=== PATIENT | female | born 1950 | race Caucasian/White ===

== ENCOUNTER 2019-01-04 13:47 | Inpatient (IN) | payer MEDICARE ==
[2019-01-04] MEDS ORDERED: Morphine 4 MG/ML VIAL ONE ×2 (14:12→18:10)
[2019-01-04] MEDS ORDERED: Adacel (T-DAP) 0.5 ML SYRINGE ONE (14:13)
[2019-01-04 14:42] LABS: #Basophils 0.1 thou/uL (0.0-0.2); #Eosinphils 0.1 thou/uL (0.0-0.7); #Lymphocytes 1.6 thou/uL (1.20-3.40); #Monocytes 0.6 thou/uL (0.11-0.59); #Neutrophils 5.1 thou/uL (1.40-6.50); %Basophils 0.8 % (0.0-1.0); %Eosinophils 0.8 % (0.0-10.0); %Lymphocytes 21.3 % (21.0-51.0); %Monocytes 7.8 % (0.0-10.0); %Neutrophils 69.3 % (42.0-75.0); Hemoglobin 13.1 g/dL (12.0-16.0); Mean Corpuscular Hemoglobin 30.4 pg (27.0-31.0); Mean Corpuscular Volume 92.1 fL (78.0-98.0); Platelet Count 234 thou/uL (130-400); RBC Distribution Width 11.8 % (11.5-14.5); White Blood Cell (WBC) Count 7.4 thou/uL (4.8-10.8)
[2019-01-04 14:45] LABS: PTT 27.9 SEC (22.9-36.1); Prothrombin Time 12.7 SEC (12.0-14.7)
[2019-01-04 14:46] LABS: D-Dimer Test 2.11 *mcg/mL (0.27-0.43)
[2019-01-04 14:56] LABS: ALT (SGPT) 18 U/L (8-55); AST (SGOT) 16 U/L (5-34); Alkaline Phosphatase 70 U/L (40-110); Anion Gap 16 mmol/L (10-20); BUN (Urea Nitrogen) 12 mg/dL (9.8-20.1); Bilirubin, Total 0.5 mg/dL (0.2-1.2); CK (CPK) 36 U/L (29-168); Calc. Creatinine Clearance 0 mL/min (70-130); Calcium 9.4 mg/dL (7.8-10.44); Carbon Dioxide 25 mmol/L (23-31); Chloride 106 mmol/L (98-107); Estimated GFR-MDRD 45; Globulin 2.4 g/dL (2.4-3.5); Glucose 96 mg/dL (80-115); Potassium 3.7 mmol/L (3.5-5.1); Protein, Total 6.4 g/dL (6.0-8.3); Sodium 143 mmol/L (136-145)
[2019-01-04] MEDS ORDERED: Ondansetron PF 4 MG/2 ML Vial ONE (15:13)
[2019-01-04 20:20] VITALS: BMI 29.9
[2019-01-04] MEDS ORDERED: Morphine 4 MG/ML VIAL SLOW IVP PRN (21:30)
[2019-01-05] MEDS ORDERED: Ondansetron PF 4 MG/2 ML Vial IVP PRN (00:13)
[2019-01-05] MEDS ORDERED: hydrALAZINE 20 MG/ML VIAL SLOW IVP PRN (00:13)
[2019-01-05] MEDS ORDERED: HYDROcodone/Acetaminophen 5/325 mg Tablet PO PRN (00:13)
[2019-01-05] MEDS ORDERED: diphenhydrAMINE 50 MG/ML VIAL IVP PRN (01:30)
[2019-01-05] MEDS ORDERED: HOLD ALL ANTI-COAGULANTS/ANTI-PLATELETS/NSAIDS PO SCH (01:30)
[2019-01-05] MEDS ORDERED: Crotalidae Polyvlnt Antivenin 2 GM in Sodium Chloride 0.9% 250 ML 250 ML IVPB PRN (01:45)
[2019-01-05] MEDS ORDERED: Crotalidae Polyvlnt Antivenin 4 GM in Sodium Chloride 0.9% 250 ML 250 ML IVPB SCH (02:30)
[2019-01-05] MEDS: Levothyroxine Sodium 112 MCG TAB PO SCH (04:59)
[2019-01-05 05:11] LABS: Band 1 % (5-11); Hemoglobin 13.7 g/dL (12.0-16.0); Lymphocytes 17 % (21-51); MDiff Complete? YES; Mean Corpuscular HGB CONC 31.3 g/dL (32.0-36.0); Mean Corpuscular Volume 92.7 fL (78.0-98.0); Monocytes 8 % (0-10); Neutrophil 74 % (42-75); Nucleated RBC 1 % (0); Platelet Count 258 thou/uL (130-400); Platelet Morphology Comment Appears Adequate; RBC Distribution Width 12.1 % (11.5-14.5); Red Blood Cell (RBC) Count 4.73 mill/uL (4.20-5.40); White Blood Cell (WBC) Count 8.3 thou/uL (4.8-10.8)
[2019-01-05 05:18] LABS: Anion Gap 14 mmol/L (10-20); BUN (Urea Nitrogen) 16 mg/dL (9.8-20.1); Calc. Creatinine Clearance 67 mL/min (70-130); Calcium 8.7 mg/dL (7.8-10.44); Carbon Dioxide 24 mmol/L (23-31); Chloride 103 mmol/L (98-107); Estimated GFR-MDRD 51; Glucose 128 mg/dL (80-115); Potassium 3.8 mmol/L (3.5-5.1); Sodium 137 mmol/L (136-145)
[2019-01-05 05:35] LABS: Platelet Count 253 thou/uL (130-400)
[2019-01-05 05:40] LABS: PTT 27.1 SEC (22.9-36.1); Prothrombin Time 12.8 SEC (12.0-14.7)
--- NOTE | 2019-01-05 07:39 | HP ---
PRIMARY CARE PROVIDER: [facility]. CHIEF COMPLAINT: Snakebite to the right foot. HISTORY OF PRESENT ILLNESS: This is a 68-year-old female who presents to [facility] Emergency Department complaining of a copperhead snakebite to the right foot. Patient states she was on her property in [place] when she got out of a chair she was sitting in and suddenly felt a sharp stabbing pain to the foot. Patient thought she had stepped on a thorn, however, realized that a copperhead was under her chair. Patient stated she had stinging, shooting pain in her right foot with some swelling. Patient had some difficulty ambulating and EMS was alerted transporting the patient to the emergency department. Patient denies any prior similar events, known history of allergic reaction to venom, or difficulty with shortness of breath. Patient states her last tetanus was more than five years prior to this evaluation. Patient denied taking any specific medication and elevated the right lower extremity until EMS personnel arrived. In the emergency room, patient underwent general evaluation, however, did not receive CroFab in the emergency room. Edema and erythema from the snake bite appeared contained on the lower extremity without progression until transferring to the observation unit. Patient received IV morphine sulfate, Zofran, and a tetanus in the emergency room. PAST MEDICAL HISTORY: 1. Hypertension. 2. Hypothyroidism. 3. History of breast cancer. 4. Hyperlipidemia. 5. Smokeless tobacco use. PAST SURGICAL HISTORY: 1. Status post breast reconstruction. 2. Status post section. 3. Status post . CURRENT MEDICATIONS: 1. Lisinopril/hydrochlorothiazide 20/12.5 mg 1 tablet p.o. daily. 2. Levothyroxine 112 mcg p.o. daily. 3. Lipitor 10 mg p.o. daily. ALLERGIES: TO SULFA. FAMILY HISTORY: No inheritable diseases per patient report. SOCIAL HISTORY: Patient resides in [place], [place]. Retired. Accompanied by her in the hospital. Former smokeless tobacco use. Alcohol weekly socially. History of prior marijuana use. REVIEW OF SYSTEMS: CONSTITUTIONAL: Negative for weight loss or gain, ability to conduct usual activities. SKIN: Negative for rash, itching. EYES: Negative for double vision, pain. ENT/MOUTH: Negative for nose bleeding, neck stiffness, pain, tenderness. CARDIOVASCULAR: Negative for palpitations, dyspnea on exertion, orthopnea. RESPIRATORY: Negative for shortness of breath, wheezing, cough, hemoptysis, fever or night sweats. GASTROINTESTINAL: Negative for poor appetite, abdominal pain, heartburn, nausea, vomiting, constipation, or diarrhea. GENITOURINARY: Negative for urgency, frequency, dysuria, nocturia. MUSCULOSKELETAL: Negative for pain, swelling. NEUROLOGIC/PSYCHIATRIC: Negative for anxiety, depression. ALLERGY/IMMUNOLOGIC: Negative for skin rash, bleeding tendency. Otherwise, negative, except as stated per HPI. PHYSICAL EXAMINATION: VITAL SIGNS: On admission, blood pressure 137/80, pulse 93, respiratory rate 23, temperature 97.8 degrees Fahrenheit, and O2 saturation 99% on room air. GENERAL APPEARANCE: This is a 68-year-old female, alert and oriented x3, pleasant, responsive, in no acute distress. HEENT: Pupils are equal, round, and reactive to light and accommodation. Extraocular muscles are intact. No scleral icterus. No conjunctival injection. Nares patent. OP is clear. Teeth in fair repair. NECK: Supple. No cervical adenopathy. No thyromegaly. No carotid bruits. No JVD appreciated. Cervical spine with full active and passive range of motion. No meningeal signs noted. CHEST: Lungs are clear to auscultation bilaterally. CARDIOVASCULAR: S1, S2 without noted murmur, rub, or gallop. ABDOMEN: Rounded, soft, nontender, and nondistended. Bowel sounds are positive in all 4 quadrants. There is no hepatosplenomegaly. No abdominal bruits. No rebound or guarding appreciated. EXTREMITIES: Right lower extremity with edema and erythema progressing to the medial right lower extremity to the popliteal space. Positive tenderness to palpation along the erythematous region of the tibial and medial calf. Pulses are palpable distally at the dorsalis pedis, posterior tibial, and popliteal arteries bilaterally. Capillary refill less than 2 seconds. NEUROLOGIC: Cranial nerves 2 through 12 are grossly intact. No focal or lateralizing signs appreciated. PERTINENT LAB AND X-RAY FINDINGS: Sodium 143, potassium 3.7, chloride 106, CO2 of 25, BUN 12, creatinine 1.20, estimated GFR 45, glucose 96, and calcium 9.4. LFTs within normal limits. CBC showed a white blood cell count of 7.4, hemoglobin 13, hematocrit 40, and platelet count 234 with normal differential. PT 12.7, INR 1.0, and PTT 27.9. Fibrinogen 391. D-dimer 2.11. ASSESSMENT/PLAN: 1. Copperhead snake envenomation of the right foot. Patient will be observed on the medical floor. We will initiate CroFab four vials x1 now. Pain control with morphine sulfate 4 mg IV q.3 hours p.r.n. Continue serial assessment of progression of edema and erythema. Education and reassurance. 2. Acute kidney injury. Mild. Suspect volume depletion. Avoid nephrotoxic agents and limit contrast exposure. Repeat creatinine in the a.m. 3. Hypertension. Resume home antihypertensive regimen and monitor clinical response. 4. Hypothyroidism. Continue levothyroxine 112 mcg daily. 5. Prophylaxis. Hold SCDs due to right lower extremity snake envenomation. Pepcid 20 mg p.o. b.i.d. Tetanus immunization updated. 6. Code status. Full. Surrogate medical decision maker is the patient's spouse. Job ID: [id number]
[2019-01-05] MEDS: Ondansetron ODT 4 MG TAB PO PRN ×2 (07:44→15:13)
[2019-01-05] MEDS: Acetaminophen 500 MG TAB PO PRN ×3 (07:44→20:43)
[2019-01-05] MEDS: Lisinopril/Hydrochlorothiazide 20 mg/12.5 mg Tablet PO SCH (08:43)
[2019-01-05] MEDS: Cholecalciferol (Vitamin D3) 400 UNITS TAB PO SCH (08:44)
[2019-01-05] MEDS: Famotidine 20 MG TAB PO SCH (08:44)
[2019-01-05] MEDS ORDERED: Crotalidae Polyvlnt Antivenin 2 GM in Sodium Chloride 0.9% 250 ML 250 ML IVPB SCH (17:45)
[2019-01-05 18:52] LABS: PTT 27.5 SEC (22.9-36.1); Prothrombin Time 12.9 SEC (12.0-14.7)
--- NOTE | 2019-01-05 20:35 | PDOC.HOSPP ---
- Subjective Subjective: Eval'd this morning. Still had some pain in the posterior-medial right knee area. Had previously had some pain in the thigh with no erythema. - Objective Vital Signs & Weight: Vital Signs (12 hours) Temp Pulse Resp BP Pulse Ox 01/05/19 15:30 98.4 F 78 17 102/55 L 96 01/05/19 11:37 98.3 F 77 16 112/59 L 96 Weight Weight 182 lb 8 oz I&O: 01/04/19 01/05/19 01/06/19 06:59 06:59 06:59 Intake Total 730 800 Output Total 1100 Balance 730 -300 Result Diagrams: 01/05/19 05:25 01/05/19 04:27 Hospitalist ROS - Medication Medications: Active Medications Generic Name Dose Route Start Last Admin Trade Name Freq PRN Reason Stop Dose Admin Acetaminophen 1,000 mg 01/05/19 00:13 01/05/19 15:13 Tylenol PO 1,000 mg Q6H PRN Administration Mild Pain (1-3) Cholecalciferol 400 units 01/05/19 09:00 01/05/19 08:44 Vitamin D PO 400 units DAILY ELMER Administration Famotidine 20 mg 01/05/19 09:00 01/05/19 08:44 Pepcid PO 20 mg DAILY ELMER Administration Lisinopril/HCTZ 1 tab 01/05/19 09:00 01/05/19 08:43 Prinizide 20-12.5 PO Not Given DAILY ELMER Levothyroxine Sodium 112 mcg 01/05/19 06:00 01/05/19 04:59 Synthroid PO 112 mcg 0600 ELMER Administration Morphine Sulfate 4 mg 01/04/19 21:30 01/04/19 23:21 Morphine SLOW IVP 4 mg Q4H PRN Administration Pain Ondansetron HCl 4 mg 01/05/19 00:13 01/05/19 15:13 Zofran Odt PO 4 mg Q6H PRN Administration Nausea/Vomiting Sodium Chloride 10 ml 01/05/19 09:00 01/05/19 08:44 Flush - Normal Saline IVF 10 ml Q12HR ELMER Administration - Exam General Appearance: NAD, awake alert Heart: RRR, no murmur, no gallops, no rubs, normal peripheral pulses Respiratory: CTAB, no wheezes, no rales, no ronchi, normal chest expansion, no tachypnea, normal percussion Extremities: 2+ LE edema (RLE) Extremities - other findings: RLE with very slight eryth proximal to sallie posteromedial knee. Skin: normal turgor (area of ecchymosis medial lower ankle.) Skin - other findings: Generally appears to have diminished erythema of the calf. Musculoskeletal: normal tone Psychiatric: normal affect, normal behavior, A&O x 3 Hosp A/P (1) Snake bite Code(s): W59.11XA - BITTEN BY NONVENOMOUS SNAKE, INITIAL ENCOUNTER Status: Acute (2) HTN (hypertension) Code(s): I10 - ESSENTIAL (PRIMARY) HYPERTENSION Status: Acute (3) Hypothyroidism Code(s): E03.9 - HYPOTHYROIDISM, UNSPECIFIED Status: Acute - Plan Continued observation after administration of Crofab. Continue home meds.
--- NOTE | 2019-01-05 20:43 | PDOC.EVN ---
Event Note - Event Note Event Note: Re-eval'd in afternoon. She has some fading of the erythema on the lower calf, but has some progression proximal to the medial right posterior knee. Still has some pain there. Pain is primarily when getting up on her feet. Long discussion with our pharmacist. At this point we agree that this is a judgment call regarding re-dosing. She is about 30 hours out, but has some evidence of progression. Will admin 2 additional vials. Recheck. Labs.
[2019-01-06 00:30] LABS: Prothrombin Time 12.6 SEC (12.0-14.7)
[2019-01-06] MEDS: Acetaminophen 500 MG TAB PO PRN ×2 (05:06→17:05)
[2019-01-06] MEDS: Levothyroxine Sodium 112 MCG TAB PO SCH (05:06)
[2019-01-06] MEDS: Lisinopril/Hydrochlorothiazide 20 mg/12.5 mg Tablet PO SCH (09:16)
[2019-01-06] MEDS: Cholecalciferol (Vitamin D3) 400 UNITS TAB PO SCH (09:17)
[2019-01-06] MEDS: Famotidine 20 MG TAB PO SCH (09:43)
[2019-01-06 16:47] VITALS: BP 121/82; TEMP 98.1
[2019-01-06] MEDS ORDERED: Cephalexin 250 MG CAP PO SCH (21:00)
[2019-01-06] MEDS ORDERED: Cephalexin 250 MG/5 ML Oral Suspension PO SCH (21:00)
== END 2019-01-06 18:03 | disposition home or self-care (01) | DRG 918 ==
LOC: ERS 13:47 → 2SW 20:01 → OBSVTOIN 01-05 21:21 → T4-A 01-06 01:11
PROVIDERS: ADMIT Internal Medicine; ATTEND Internal Medicine
DX: T63.091A Toxic effect of venom of other snake, accidental (unintentional), initial encounter (principal); N17.9 Acute kidney failure, unspecified; I10 Essential (primary) hypertension; E03.9 Hypothyroidism, unspecified; E78.5 Hyperlipidemia, unspecified; Z85.3 Personal history of malignant neoplasm of breast; Z88.2 Allergy status to sulfonamides; Z87.891 Personal history of nicotine dependence; Y92.89 Other specified places as the place of occurrence of the external cause
CPT/HCPCS: 36415; 80048; 80053; 82550; 85007; 85025; 85027; 85379; 85384; 85610; 85730; 90471; 90715; 96374; 96375; 96376; J0840; J2270; J2405; J7050; Q0162